=== PATIENT | female | born 1960 ===

== ENCOUNTER 2017-06-01 08:24 | Day surgery (SDC) | payer OTHER, MEDICARE ==
[2017-05-28 12:37] VITALS: BMI 28.1
[2017-06-01 09:21] VITALS: RESP 18
[2017-06-01] MEDS ORDERED: Midazolam 2 MG/2 ML VIAL ONE (11:16)
[2017-06-01] MEDS ORDERED: ceFAZolin IV 2 gm in Dextrose 0 GM/0 ML BAG IVPB ONE (11:16)
[2017-06-01] MEDS ORDERED: Propofol 10 mg/ml Inj (20 ML) ONE (11:16)
[2017-06-01] MEDS ORDERED: Lactated Ringer's 1,000 ML IV ONE (11:16)
[2017-06-01] MEDS ORDERED: cefOXitin IV 1 gm in Dextrose 0 GM/0 ML BAG IVPB ONE (11:16)
[2017-06-01] MEDS ORDERED: HYDROmorphone 0.5 mg/0.5 ml ISec IVP PRN (11:58)
--- NOTE | 2017-06-01 12:03 | PCM.SURG1 ---
Surgeon's Initial Post Op Note - Surgeon's Notes Surgeon: Dr. Lilly Sports Therapist: None Type of Anesthesia: General LMA Anesthesia Administered By: Dr. Mcghee Pre-Operative Diagnosis: 57 yo AV uterus stenotic os Operative Findings: Av uterus stenotic os scant tisssue Post-Operative Diagnosis: Same as above Operation Performed: Fractional D and C, attempted hysteroscopy Myosure Specimen/Specimens Removed: EMC, ECC Estimated Blood Loss: EBL {In ML}: 0 Blood Products Given: N/A Drains Used: No Drains Post-Op Condition: Good Date of Surgery/Procedure: 06/01/17 Time of Surgery/Procedure: 12:04
[2017-06-01 13:13] VITALS: BP 139/83; PULSE 56; O2SAT 100
[2017-06-01 13:22] VITALS: TEMP 98
--- NOTE | 2017-06-01 22:35 | OP ---
PROCEDURE DATE: 06/01/2017 PREOPERATIVE DIAGNOSIS: A 57-year-old female with postmenopausal bleeding, and a thickened endometrium. PROCEDURE: Fractional D and C, attempted hysteroscopy, and MyoSure. SURGEON: Letty Lilly MD TYPE OF ANESTHESIA: General LMA. FINDINGS: Anteverted uterus completely stenotic, nonmobile due to her prior three C-sections. COMPLICATIONS: None. ESTIMATED BLOOD LOSS: Zero. INTRAVENOUS FLUIDS: 400 mL. URINE OUTPUT: 20 mL. SPECIMEN: EMC and ECC. DESCRIPTION OF PROCEDURE: The patient was informed of the risk factors, benefits, and alternatives of the procedure. Risk factors included infection, bleeding, damage to the surrounding organs and tissues, complication from anesthesia, and possible . All questions were answered prior to obtaining the consent form. She was then taken to the operating room, prepped and draped in normal sterile fashion, placed in dorsal lithotomy position. A weighted speculum was placed into the vagina. The anterior lip of the cervix was grasped with a single-toothed tenaculum. The uterus was gently sounded to approximately 6 cm. Upon complete uterine dilation, I attempted to put the hysteroscope. Her OS was too stenotic and tight, it was unsuccessfully performed. In that particular instance, it was noted to abort the procedure and a fractional D and C was performed. EMC and ECC was obtained. Excellent hemostasis was noted and was submitted to pathology. Upon completion, all instruments were removed from the vagina. Instrument and lap counts were correct x2. She was then taken to recovery room in stable condition and instructed to follow up in the office in approximately 2 weeks. Letty Lilly MD
== END 2017-06-01 13:29 | disposition home or self-care (01) ==
LOC: C.SDS 08:24
PROVIDERS: ATTEND Obstetrics & Gynecology
DX: N95.0 Postmenopausal bleeding (principal); R93.8 Abnormal findings on diagnostic imaging of other specified body structures; N85.4 Malposition of uterus; N85.00 Endometrial hyperplasia, unspecified
CPT/HCPCS: 58558; 88305; J2250; J2704; J3010; J7120

== ENCOUNTER 2018-10-04 09:37 | Outpatient (CLI) | payer BC, MEDICARE | END 2018-10-04 09:38 | disposition home or self-care (01) | LOC: C.MAMMO 09:37 | DX: N64.4 Mastodynia (principal) ==